=== PATIENT | female | born 1965 | race American Indian/Alaskan Native ===

== ENCOUNTER 2019-10-23 11:15 | Outpatient (CLI) | payer MEDICARE ==
[2019-10-23 11:33] LABS: INR 4.19 (0.87-1.13)
== END 2019-10-23 11:16 | disposition home or self-care (01) ==
LOC: LABHHL 11:15
PROVIDERS: ATTEND Family Medicine
DX: Z51.81 Encounter for therapeutic drug level monitoring (principal); N32.9 Bladder disorder, unspecified; Z79.01 Long term (current) use of anticoagulants
CPT/HCPCS: 36415; 85610

== ENCOUNTER 2020-02-19 09:30 | Outpatient (CLI) | payer MEDICARE ==
[2020-02-19 10:25] LABS: Hematocrit 32.1 % (30.3-42.9); Hemoglobin 11.5 gm/dl (10.1-14.3); Mean Corpuscular HGB Conc 36 % (30-34); Platelet Count 237 K/mm3 (140-440); Red Blood Count 2.73 M/mm3 (3.65-5.03); Red Cell Distribution Width 15.9 % (13.2-15.2)
[2020-02-19 11:26] LABS: Mean Corpuscular Volume 118 fl (79-97)
[2020-02-19 11:48] LABS: Anisocytosis Few; Basophils % (Manual) 0 % (0.0-1.8); Poikilocytosis Few; Total Cells Counted 100
[2020-02-19 11:49] LABS: Platelet Estimate Consistent w Auto
== END 2020-02-19 09:31 | disposition home or self-care (01) ==
LOC: LAB 09:30
PROVIDERS: ATTEND Family Medicine
DX: M32.9 Systemic lupus erythematosus, unspecified (principal)
CPT/HCPCS: 36415; 85007; 85025